=== PATIENT | female | born 1965 | race Caucasian/White ===

== ENCOUNTER 2016-10-24 19:43 | Emergency (ER) | payer OTHER ==
[~2016-10-24 19:43] MED LIST: ATEN25TA PO; FISH100035 PO; GABAPOW41 PO; HYDROCHLOROTHIAZIDE PO; IRON325T3 PO; KLORCON PO; LEVA31IN INH; LOSARTAN PO; MOME50SP; PULM1SUS IN; VITA30004 PO; ZOLO100T PO
[2016-10-24] MEDS ORDERED: METOPROLOL TART 25 MG TABLET As Ordered ONE (20:20)
[2016-10-24] MEDS ORDERED: ASPIRIN 81 MG CHEW TABLET As Ordered ONE (20:20)
[2016-10-24] MEDS ORDERED: CHLORTHALIDONE 25 MG TAB As Ordered ONE (20:21)
[2016-10-24 20:48] LABS: BASO % 0.7 % (0.0-1.0); EOS # 0.2 K/mm3 (0.0-0.50); EOS % 2.2 % (0.0-3.0); LARGE UNSTAINED CELL # 0.1 K/mm3 (0.0-0.4); LARGE UNSTAINED CELL % 1.5 % (0.0-4.0); LYMPH # 1.7 K/mm3 (1.5-4.5); LYMPH % 20.4 % (24.0-44.0); MEAN CORPUSCULAR HEMOGLOBIN 27.8 pg (27.0-33.0); MEAN CORPUSCULAR HGB CONC 32.2 g/dl (32.0-36.5); MEAN CORPUSCULAR VOLUME 86.3 fl (80.0-96.0); MONO # 0.3 K/mm3 (0.0-0.8); MONO % 3.9 % (0.0-5.0); NEUTROPHILS # 5.8 K/mm3 (1.8-7.7); NEUTROPHILS % 71.4 % (36.0-66.0); PLATELET COUNT, AUTOMATED 426 k/mm3 (150-450); RED CELL DISTRIBUTION WIDTH 14.2 % (11.5-14.5); WHITE BLOOD COUNT 8.1 K/mm3 (4.0-10.0)
[2016-10-24 20:55] LABS: INR 0.99
[2016-10-24 21:20] LABS: ANION GAP 6 MEQ/L (8-16); BLOOD UREA NITROGEN 17 MG/DL (7-18); CALCIUM LEVEL 8.9 MG/DL (8.5-10.1); CARBON DIOXIDE LEVEL 33 MEQ/L (21-32); CHLORIDE LEVEL 102 MEQ/L (98-107); GLUCOSE, FASTING 146 MG/DL (70-105); POTASSIUM SERUM 3.6 MEQ/L (3.5-5.1); SODIUM LEVEL 141 MEQ/L (136-145)
--- NOTE | 2016-10-24 21:43 | EDDOCDS ---
Physician Documentation [facility] Name: Heidi Henry Age: 50 yrs Sex: Female : 1965 Arrival Date: 10/24/2016 Time: 19:43 Bed 6 Private MD: Nadine Arevalo E Disposition: 10/24/16 21:32 Discharged to Home/Self Care. Impression: Chest pain, unspecified. - Condition is Stable. - Discharge Instructions: Nonspecific Chest Pain. - Medication Reconciliation, Local Pharmacy Hours form. - Follow up: Nadine Arevalo; When: 4 - 5 days; Reason: Recheck today's complaints, Continuance of care. Follow up: Min Loera; When: Call to arrange an appointment; Reason: Recheck today's complaints, Continuance of care. - Problem is an ongoing problem. - Symptoms are unchanged. Historical: - Allergies: Latex; Lisinopril; - Home Meds: 1. Nexium 40 mg Oral cpDR 1 cap once daily 2. valsartan 160 mg oral tab 1 tab once daily 3. Sertraline 100 mg daily 4. torsemide 10 mg oral tab 1 tab PRN For increased leg swelling 5. chlorthalidone 25 mg Oral tab 1 tab once daily Pt is to stop taking if she takes Torsemide 6. aspirin 81 mg Oral TbEC 1 tab once daily 7. Pulmicort Turbuhaler 200 mcg/actuation Inhl aepb twice a day 8. Xopenex HFA 45 mcg/actuation inhalation HFAA 2 puffs every 4 hours PRN 9. Vitamin D Oral 5000 unit daily 10. biotin 2,500 mcg oral tab 2 tabs daily 11. ubiquinol (bulk) miscellaneous daily 12. Fish Oil Oral daily - PMHx: GERD; Depression; Hypertension; Anxiety; - PSHx: ; - Social history: No barriers to communication noted, The patient speaks fluent Welsh, Speaks appropriately for age, Smoking status: Patient states was never smoker of tobacco. - Family history: No immediate family members are acutely ill. - : The pt / caregiver states he / she is not on anticoagulants. Home medication list is obtained from the patient. - Exposure Risk Screening:: None identified. MANAGER INCOME TAX: 10/24 20:10 LMP 08/2016, irregular jo3 Vital Signs: 19:45 BP 188 / 99; Pulse 100; Resp 16; Pulse Ox 100% on R/A; Weight 121.56 kg / 267.99 lbs; sew Height 5 ft. 4 in. (162.56 cm); Pain 3/10; 19:47 Temp 97.0(T); sew 20:11 BP 162 / 58 (auto/); mv5 20:11 Pulse 92 MON; Pulse Ox 98% ; mv5 20:41 BP 151 / 67 (auto/); mv5 20:41 Pulse 84 MON; Pulse Ox 96% ; mv5 20:56 BP 150 / 68 (auto/); mv5 20:56 Pulse 76 MON; Pulse Ox 97% ; mv5 21:11 BP 141 / 55 (auto/); mv5 21:11 Pulse 72 MON; Pulse Ox 94% ; mv5 21:26 BP 129 / 60 (auto/); mv5 21:26 Pulse 78 MON; Pulse Ox 96% ; mv5 21:35 BP 147 / 65 (auto/); mv5 21:35 Pulse 66 MON; Resp 18; Temp 98.3; Pulse Ox 96% ; mv5 19:45 Body Mass Index 46.00 (121.56 kg, 162.56 cm) sew MDM: 19:49 ECG WITH READING ER PHYS+CARDIAG ordered. EDMS 20:15 Aspirin Chewable Tablet 324 mg PO once ordered. ke 20:15 Metoprolol (Tartrate) 50 mg PO once ordered. ke 20:15 Interventional Radiology Technologist/Pulse Ox/q 30 min VS ordered. ke 20:15 IV Saline Lock ordered. ke 20:15 Rhythm Strip to chart ordered. ke 20:15 Undress patient appropriately for examination ordered. ke 20:15 Chlorthalidone 25 mg PO once ordered. ke 20:16 B-Type Natiuretic Peptide Ordered. EDMS 20:16 Basic Metabolic Profile Ordered. EDMS 20:16 CBC with Diff Ordered. EDMS 20:16 Cardiac Injury Profile Ordered. EDMS 20:16 Prothrombin Time Profile\E\INR Ordered. EDMS 20:16 Troponin Ordered. EDMS 20:16 Chest, 2 View (pa\E\lat) Ordered. EDMS 20:43 Financial registration complete. gjb 20:54 CBC with Diff Reviewed. ke 20:54 [facility] [place] Agreement was scanned into [employer]) and attached to record. gjb 21:24 Basic Metabolic Profile Reviewed. ke 21:24 B-Type Natiuretic Peptide Reviewed. ke 21:24 Cardiac Injury Profile Reviewed. ke 21:24 Prothrombin Time Profile\E\INR Reviewed. ke 21:24 Troponin Reviewed. ke Administered Medications: 20:25 Drug: Aspirin 324 mg [aspirin 81 mg chewable tablet (4 tabs)] Route: PO; mv5 21:42 Follow up: Response: No Adverse Reaction mv5 20:25 Drug: Metoprolol 50 mg [metoprolol tartrate 25 mg tablet (2 tabs)] Route: PO; mv5 21:42 Follow up: Response: No Adverse Reaction mv5 20:37 Not Given (Patient Refused): Chlorthalidone 25 mg PO once mv5 Signatures: Dispatcher [employer]Host EDAlen Titus, BOAT RENTAL CLERK BOAT RENTAL CLERK Macey Contreras,RN RN Tiara Arroyo MeganRN RN mv5 The chart was reviewed and I authenticate all verbal orders and agree with the evaluation and treatment provided.Attachments: 20:54 [facility] Payment Agreement lani MTDD
--- NOTE | 2016-10-24 21:43 | EDDOCDS ---
Nurse's Notes [facility] Name: Heidi Henry Age: 50 yrs Sex: Female : 1965 Arrival Date: 10/24/2016 Time: 19:43 Bed 6 Private MD: Nadine Arevalo E Diagnosis: Chest pain, unspecified Presentation: 10/24 20:00 Presenting complaint: Patient states: Intermittent mid anterior chest pain x several jo3 days that is sometimes reproducible and sometimes unchanged with movement, palpation or breathing. Pain radiates outward intermittently to ENA chest. Aspirin was not taken prior to arrival. 81mg home dose ASA. Adult Sepsis Screening: The patient does not have new or worsening altered mentation. Patient's respiratory rate is less than 22. Systolic blood pressure is greater than 100. Patient has a qSOFA score of 0- Negative Sepsis Screen. Suicide/Homicide risk assessment- the patient denies having any suicidal and/or homicidal ideations and does not present with any other emotional, behavioral or mental health complaints. Status: Patient is not a service desk associate or dependent. Transition of care: patient was not received from another setting of care. 20:00 Acuity: YAMILET Level 2 jo3 20:00 Method Of Arrival: Walkin/Carried/Asstd jo3 Triage Assessment: 20:10 General: Appears in no apparent distress, Behavior is appropriate for age, cooperative. jo3 Neurological: Level of Consciousness is awake, alert, Oriented to person, place, time. Respiratory: Airway is patent Respiratory effort is even, unlabored. Derm: Skin is pink, warm & dry. 21:40 Cardiovascular: Chest pain episodes are intermittent. mv5 21:40 Pt Declines HIV testing. Cardiovascular: Chest pain is described as mild, radiates Does mv5 not radiate. began 3 days ago. ACCOUNT SUPPORT ANALYST: 20:10 LMP 08/2016, irregular jo3 Historical: - Allergies: Latex; Lisinopril; - Home Meds: 1. Nexium 40 mg Oral cpDR 1 cap once daily 2. valsartan 160 mg oral tab 1 tab once daily 3. Sertraline 100 mg daily 4. torsemide 10 mg oral tab 1 tab PRN For increased leg swelling 5. chlorthalidone 25 mg Oral tab 1 tab once daily Pt is to stop taking if she takes Torsemide 6. aspirin 81 mg Oral TbEC 1 tab once daily 7. Pulmicort Turbuhaler 200 mcg/actuation Inhl aepb twice a day 8. Xopenex HFA 45 mcg/actuation inhalation HFAA 2 puffs every 4 hours PRN 9. Vitamin D Oral 5000 unit daily 10. biotin 2,500 mcg oral tab 2 tabs daily 11. ubiquinol (bulk) miscellaneous daily 12. Fish Oil Oral daily - PMHx: GERD; Depression; Hypertension; Anxiety; - PSHx: ; - Social history: No barriers to communication noted, The patient speaks fluent Comoran, Speaks appropriately for age, Smoking status: Patient states was never smoker of tobacco. - Family history: No immediate family members are acutely ill. - : The pt / caregiver states he / she is not on anticoagulants. Home medication list is obtained from the patient. - Exposure Risk Screening:: None identified. Screenin:11 Screening information is obtained from the patient. Fall risk: No risks identified. mv5 Assistance ADL's: requires no assistance with activities of daily living. Abuse/DV Screen: The patient / caregiver reports he/she is: not in a situation that causes fear, pain or injury. Nutritional screening: No deficits noted. Advance Directives: There is no active DNR order. home support is adequate. Assessment: 20:38 General: Appears in no apparent distress, well nourished, well groomed, Behavior is mv5 cooperative, Family at bedside.. Pain: Location: mid-sternal area Pain currently is 3 out of 10 on a pain scale. Pain does not radiate. Quality of pain is described as squeezing, Is intermittent x 3 days. Neurological: Level of Consciousness is awake, alert, Oriented to person, place, time. Cardiovascular: Capillary refill < 3 seconds Heart tones S1 S2 present Pulses are all present. Rhythm is sinus rhythm No ectopy. Respiratory: Airway is patent Respiratory effort is even, unlabored, Respiratory pattern is regular, symmetrical, Breath sounds are clear bilaterally. GI: No deficits noted. : No deficits noted. Derm: Skin is pink, warm & dry. 20:50 General: Appears in no apparent distress, Pt to xray and returned without incident.. mv5 Cardiovascular:. Cardiovascular: Rhythm is sinus rhythm No ectopy. 21:30 General: Appears in no apparent distress, INTERLOCKER in to reassess pt.. Neurological: Level of mv5 Consciousness is awake, alert, Oriented to person, place, time. Cardiovascular: Rhythm is sinus rhythm No ectopy. Respiratory: Airway is patent Respiratory effort is even, unlabored, Respiratory pattern is regular, symmetrical. Derm: Skin is pink, warm & dry. 21:39 General: Appears in no apparent distress, Discharge information reviewed with pt.. mv5 Vital Signs: 19:45 BP 188 / 99; Pulse 100; Resp 16; Pulse Ox 100% on R/A; Weight 121.56 kg; Height 5 ft. 4 sew in. (162.56 cm); Pain 3/10; 19:47 Temp 97.0(T); sew 20:11 BP 162 / 58 (auto/); mv5 20:11 Pulse 92 MON; Pulse Ox 98% ; mv5 20:41 BP 151 / 67 (auto/); mv5 20:41 Pulse 84 MON; Pulse Ox 96% ; mv5 20:56 BP 150 / 68 (auto/); mv5 20:56 Pulse 76 MON; Pulse Ox 97% ; mv5 21:11 BP 141 / 55 (auto/); mv5 21:11 Pulse 72 MON; Pulse Ox 94% ; mv5 21:26 BP 129 / 60 (auto/); mv5 21:26 Pulse 78 MON; Pulse Ox 96% ; mv5 21:35 BP 147 / 65 (auto/); mv5 21:35 Pulse 66 MON; Resp 18; Temp 98.3; Pulse Ox 96% ; mv5 19:45 Body Mass Index 46.00 (121.56 kg, 162.56 cm) sew Vitals: 19:45 Log In Time: October 24, 2016 at 19:41. RN notified that patient meets Red Flag sew criteria. ED Course: 19:45 Patient visited by Yolis Hopper. sew 19:45 Nadine Arevalo is Private Physician. sew 19:45 Patient moved to Waiting sew 19:47 Patient visited by Yolis Hopper. sew 19:47 Concepicon Goodson,HEIDY is Primary Nurse. sew 19:47 Patient moved to 6 sew 20:02 Triage Initiated jo3 20:05 [facility]. ke 20:05 Patient visited by Alen Gonzalez FNP. ke 20:05 Patient visited by Alen Gonzalez FNP. ke 20:11 Patient visited by Macey Downey RN. jo3 20:11 The patient / caregiver is instructed regarding the plan of care and ED course. Cardiac mv5 monitor on. Pulse ox on. NIBP on. 20:11 Inserted saline lock: 20 gauge in left antecubital area and blood collected. The mv5 patient tolerated the procedure well. 20:28 Patient visited by Seng Clemens PCA. jmv 20:28 EKG done. (by ED staff). Reviewed by Alen NORRIS. jmv 20:37 B-Type Natiuretic Peptide Sent. mv5 20:37 Basic Metabolic Profile Sent. mv5 20:37 CBC with Diff Sent. mv5 20:37 Cardiac Injury Profile Sent. mv5 20:37 Prothrombin Time Profile\E\INR Sent. mv5 20:37 Troponin Sent. mv5 20:52 Patient visited by Alen Gonzalez FNP. ke 20:54 [facility] Payment Agreement was scanned into [employer] and attached to record. gjb 21:08 Patient name changed from Heidi\S\\S\Elaine\S\ to Heidi\S\ \S\Elaine. EDMS 21:22 Patient visited by Alen Gonzalez FNP. ke 21:32 Nadine Arevalo is Referral Physician. ke 21:32 Min Loera is Referral Physician. ke 21:35 Discontinued intact, bleeding controlled, pressure dressing applied, No mv5 redness/swelling at site. No procedures done that require assistance. Administered Medications: 20:25 Drug: Aspirin 324 mg [aspirin 81 mg chewable tablet (4 tabs)] Route: PO; mv5 21:42 Follow up: Response: No Adverse Reaction mv5 20:25 Drug: Metoprolol 50 mg [metoprolol tartrate 25 mg tablet (2 tabs)] Route: PO; mv5 21:42 Follow up: Response: No Adverse Reaction mv5 20:37 Not Given (Patient Refused): Chlorthalidone 25 mg PO once mv5 Order Results: Lab Order: B-Type Natiuretic Peptide; SPEC'M 10/24/16 20:24 Test: BRAIN NATRIURETIC PEPTIDE; Value: < 5.0; Range: <100; Units: PG/ML; Status: F Lab Order: Basic Metabolic Profile; SPEC'M 10/24/16 20:24 Test: GLUCOSE, FASTING; Value: 146; Range: 70-105; Abnormal: Above high normal; Units: MG/DL; Status: F Test: BLOOD UREA NITROGEN; Value: 17; Range: 7-18; Units: MG/DL; Status: F Test: CREATININE FOR GFR; Value: 1.10; Range: 0.55-1.02; Abnormal: Above high normal; Units: MG/DL; Status: F Test: GLOMERULAR FILTRATION RATE; Value: 56.0; Range: >51; Status: F Test: SODIUM LEVEL; Value: 141; Range: 136-145; Units: MEQ/L; Status: F Test: POTASSIUM SERUM; Value: 3.6; Range: 3.5-5.1; Units: MEQ/L; Status: F Test: CHLORIDE LEVEL; Value: 102; Range: 98-107; Units: MEQ/L; Status: F Test: CARBON DIOXIDE LEVEL; Value: 33; Range: 21-32; Abnormal: Above high normal; Units: MEQ/L; Status: F Test: ANION GAP; Value: 6; Range: 8-16; Abnormal: Below low normal; Units: MEQ/L; Status: F Test: CALCIUM LEVEL; Value: 8.9; Range: 8.5-10.1; Units: MG/DL; Status: F Test Note: ; Units are mL/min/1.73 m2 Chronic Kidney Disease Staging per NKF: Stage I & II GFR >=60 Normal to Mildly Decreased Stage III GFR 30-59 Moderately Decreased Stage IV GFR 15-29 Severely Decreased Stage V GFR <15 Very Little GFR Left ESRD GFR <15 on ESTATE MANAGER Lab Order: CBC with Diff; SPEC'M 10/24/16 20:24 Test: WHITE BLOOD COUNT; Value: 8.1; Range: 4.0-10.0; Units: K/mm3; Status: F Test: RED BLOOD COUNT; Value: 4.56; Range: 4.00-5.40; Units: M/mm3; Status: F Test: HEMOGLOBIN; Value: 12.7; Range: 12.0-16.0; Units: g/dl; Status: F Test: HEMATOCRIT; Value: 39.4; Range: 36.0-47.0; Units: %; Status: F Test: MEAN CORPUSCULAR VOLUME; Value: 86.3; Range: 80.0-96.0; Units: fl; Status: F Test: MEAN CORPUSCULAR HEMOGLOBIN; Value: 27.8; Range: 27.0-33.0; Units: pg; Status: F Test: MEAN CORPUSCULAR HGB CONC; Value: 32.2; Range: 32.0-36.5; Units: g/dl; Status: F Test: RED CELL DISTRIBUTION WIDTH; Value: 14.2; Range: 11.5-14.5; Units: %; Status: F Test: PLATELET COUNT, AUTOMATED; Value: 426; Range: 150-450; Units: k/mm3; Status: F Test: NEUTROPHILS %; Value: 71.4; Range: 36.0-66.0; Abnormal: Above high normal; Units: %; Status: F Test: LYMPH %; Value: 20.4; Range: 24.0-44.0; Abnormal: Below low normal; Units: %; Status: F Test: MONO %; Value: 3.9; Range: 0.0-5.0; Units: %; Status: F Test: EOS %; Value: 2.2; Range: 0.0-3.0; Units: %; Status: F Test: BASO %; Value: 0.7; Range: 0.0-1.0; Units: %; Status: F Test: LARGE UNSTAINED CELL %; Value: 1.5; Range: 0.0-4.0; Units: %; Status: F Test: NEUTROPHILS #; Value: 5.8; Range: 1.8-7.7; Units: K/mm3; Status: F Test: LYMPH #; Value: 1.7; Range: 1.5-4.5; Units: K/mm3; Status: F Test: MONO #; Value: 0.3; Range: 0.0-0.8; Units: K/mm3; Status: F Test: EOS #; Value: 0.2; Range: 0.0-0.50; Units: K/mm3; Status: F Test: BASO #; Value: 0.0; Range: 0.0-0.2; Units: K/mm3; Status: F Test: LARGE UNSTAINED CELL #; Value: 0.1; Range: 0.0-0.4; Units: K/mm3; Status: F Lab Order: Cardiac Injury Profile; [facility] 10/24/16 20:24 Test: CPK CREATINE PHOSPHOKINASE; Value: 111; Range: 26-192; Units: U/L; Status: F Test: CK-MB VALUE MASS; Value: 1.6; Range: 0.0-3.6; Units: NG/ML; Status: F Test: MB/CK RELATIVE INDEX; Value: 1.44; Range: < OR =4; Status: F Test Note: ; DIAGNOSIS CRITERIA MMB ng/ml Relative Index (RI) NON-AMI < or = 5 N/A MCLAIN ZONE > 5 < or = 4 AMI > 5 > 4 Lab Order: Prothrombin Time Profile\E\INR; [facility] 10/24/16 20:24 Test: PROTHROMBIN TIME; Value: 13.2; Range: 12.3-14.5; Units: SECONDS; Status: F Test: INR; Value: 0.99; Status: F Test Note: ; THERAPUTIC HUMAN INR VALUES INDICATIONS NORMAL RANGES PROPHYLAXIS/TREATMENT OF: VENOUS THROMBOSIS 2.0-3.0 PULMONARY EMBOLISM 2.0-3.0 PREVENTION OF SYSTEMIC EMBOLISM FROM: TISSUE HEART VALVES 2.0-3.0 ACUTE MYOCARDIAL INFARCTION 2.0-3.0 VALVULAR HEART DISEASE 2.0-3.0 ATRIAL FIBRILLATION 2.0-3.0 MECHANICAL VALVES(HIGH RISK) 2.5-3.5 RECURRENT MYOCARDIAL INFARCTION 2.5-3.5 Lab Order: Troponin; [facility] 10/24/16 20:24 Test: TROPONIN I; Value: < 0.02; Range: < 0.10; Units: NG/ML; Status: F Test Note: ; Troponin I Reference Interval for Enlightened Lifestyle LOCI: 99th Percentile= 0.00-0.045 ng/ml Risk Stratification: <= 0.10 ng/ml Decreased Risk for Adverse Clinical Events. 0.10-1.50 ng/ml Increased Risk for Adverse Clinical Events. Evaluation of additional criterion and/or repeat testing in 2-6 hours is suggested to rule out myocardial damage. >= 1.50 ng/ml Indicative of Myocardial Injury. Outcome: 21:32 Discharge ordered by Provider. 21:35 Discharge Assessment: Patient awake, alert and oriented x 3. No cognitive and/or mv5 functional deficits noted. Patient verbalized understanding of disposition instructions. patient administered narcotics - no. The following High Risk Discharge criteria are identified: None. Discharged to home. Condition: stable. Discharge instructions given to patient, Demonstrated understanding of Pt was receptive of discharge instructions/ teaching. No special radiology studies were completed. Property sent home with patient. 21:42 Patient left the ED. mv5 Signatures: Dispatcher MedHost EDAlen Titus, SLEEPING CAR CONDUCTOR Macey Chávez,RN RN joFamilia Hopper, Tiara Linares Jose, LATHMAKER LATHMAKER Concepcion Bonilla,RN RN mv5 MTDD
--- NOTE | 2016-10-25 10:19 | REP ---
CHEST PA AND LATERAL: 10/24/2016. Clinical history: Chest pain. Comparison: 09/17/2016. Findings: Lungs are well inflated without infiltrate, effusion, or atelectasis. Hilar contours are normal and unchanged. The aorta is intact. Airway is unremarkable. Bones show no acute compression deformity. No free air under the diaphragm. Impression: 1. No acute cardiopulmonary disease, stable chest. Signed by Hakeem Davila MD 10/25/2016 07:30 P
--- NOTE | 2016-10-25 12:53 | ECGEPIP ---
Stationary ECG Study [facility] - ED Test Date: 2016-10-24 Pat Name: JANINA JORDAN Department: Room: - Gender: F Fast Food Server: sunita : 1965 Requested By: ALYSSA Mckeon Order Number: [id number] Reading MD: Tiffany Barbosa Measurements Intervals [place] Rate: 88 P: 52 MI: 146 QRS: 37 QRSD: 91 T: 9 QT: 377 QTc: 458 Interpretive Statements SINUS RHYTHM LOW QRS VOLTAGE IN PRECORDIAL LEADS DELAYED R WAVE PROGRESSION PROLONGED QTC NONSPECIFIC ST T WAVE CHANGES CW 10/06/13 - RATE DECREASED NONSPECIFIC ST T WAVE CHANGES Electronically Signed On 10-25-2016 12:53:19 EST by Tiffany Barbosa
--- NOTE | 2016-10-26 22:44 | EDDOCDS ---
Physician Documentation [facility] Name: Heidi Henry Age: 50 yrs Sex: Female : 1965 Arrival Date: 10/24/2016 Time: 19:43 Bed 6 Private MD: Nadine Arevalo E Disposition: 10/24/16 21:32 Discharged to Home/Self Care. Impression: Chest pain, unspecified. - Condition is Stable. - Discharge Instructions: Nonspecific Chest Pain. - Medication Reconciliation, Local Pharmacy Hours form. - Follow up: Nadine Arevalo; When: 4 - 5 days; Reason: Recheck today's complaints, Continuance of care. Follow up: Min Loera; When: Call to arrange an appointment; Reason: Recheck today's complaints, Continuance of care. - Problem is an ongoing problem. - Symptoms are unchanged. Historical: - Allergies: Latex; Lisinopril; - Home Meds: 1. Nexium 40 mg Oral cpDR 1 cap once daily 2. valsartan 160 mg oral tab 1 tab once daily 3. Sertraline 100 mg daily 4. torsemide 10 mg oral tab 1 tab PRN For increased leg swelling 5. chlorthalidone 25 mg Oral tab 1 tab once daily Pt is to stop taking if she takes Torsemide 6. aspirin 81 mg Oral TbEC 1 tab once daily 7. Pulmicort Turbuhaler 200 mcg/actuation Inhl aepb twice a day 8. Xopenex HFA 45 mcg/actuation inhalation HFAA 2 puffs every 4 hours PRN 9. Vitamin D Oral 5000 unit daily 10. biotin 2,500 mcg oral tab 2 tabs daily 11. ubiquinol (bulk) miscellaneous daily 12. Fish Oil Oral daily - PMHx: GERD; Depression; Hypertension; Anxiety; - PSHx: ; - Social history: No barriers to communication noted, The patient speaks fluent Czech, Speaks appropriately for age, Smoking status: Patient states was never smoker of tobacco. - Family history: No immediate family members are acutely ill. - : The pt / caregiver states he / she is not on anticoagulants. Home medication list is obtained from the patient. - Exposure Risk Screening:: None identified. ACCOUNTS CLERK: 10/24 20:10 LMP 08/2016, irregular jo3 Vital Signs: 19:45 BP 188 / 99; Pulse 100; Resp 16; Pulse Ox 100% on R/A; Weight 121.56 kg / 267.99 lbs; sew Height 5 ft. 4 in. (162.56 cm); Pain 3/10; 19:47 Temp 97.0(T); sew 20:11 BP 162 / 58 (auto/); mv5 20:11 Pulse 92 MON; Pulse Ox 98% ; mv5 20:41 BP 151 / 67 (auto/); mv5 20:41 Pulse 84 MON; Pulse Ox 96% ; mv5 20:56 BP 150 / 68 (auto/); mv5 20:56 Pulse 76 MON; Pulse Ox 97% ; mv5 21:11 BP 141 / 55 (auto/); mv5 21:11 Pulse 72 MON; Pulse Ox 94% ; mv5 21:26 BP 129 / 60 (auto/); mv5 21:26 Pulse 78 MON; Pulse Ox 96% ; mv5 21:35 BP 147 / 65 (auto/); mv5 21:35 Pulse 66 MON; Resp 18; Temp 98.3; Pulse Ox 96% ; mv5 19:45 Body Mass Index 46.00 (121.56 kg, 162.56 cm) sew MDM: 19:49 ECG WITH READING ER PHYS+CARDIAG ordered. EDMS 20:15 Aspirin Chewable Tablet 324 mg PO once ordered. ke 20:15 Metoprolol (Tartrate) 50 mg PO once ordered. ke 20:15 Associate Dean Of Women/Pulse Ox/q 30 min VS ordered. ke 20:15 IV Saline Lock ordered. ke 20:15 Rhythm Strip to chart ordered. ke 20:15 Undress patient appropriately for examination ordered. ke 20:15 Chlorthalidone 25 mg PO once ordered. ke 20:16 B-Type Natiuretic Peptide Ordered. EDMS 20:16 Basic Metabolic Profile Ordered. EDMS 20:16 CBC with Diff Ordered. EDMS 20:16 Cardiac Injury Profile Ordered. EDMS 20:16 Prothrombin Time Profile\E\INR Ordered. EDMS 20:16 Troponin Ordered. EDMS 20:16 Chest, 2 View (pa\E\lat) Ordered. EDMS 20:43 Financial registration complete. gjb 20:54 CBC with Diff Reviewed. ke 20:54 [facility] [place] Agreement was scanned into [employer] and attached to record. gjb 21:24 Basic Metabolic Profile Reviewed. ke 21:24 B-Type Natiuretic Peptide Reviewed. ke 21:24 Cardiac Injury Profile Reviewed. ke 21:24 Prothrombin Time Profile\E\INR Reviewed. ke 21:24 Troponin Reviewed. ke 10/25 10:27 T-Sheet-- Draft Copy was scanned into [employer] and attached to record. gb 16:35 ECG/EKG was scanned into [employer] and attached to record. gb Administered Medications: 10/24 20:25 Drug: Aspirin 324 mg [aspirin 81 mg chewable tablet (4 tabs)] Route: PO; mv5 21:42 Follow up: Response: No Adverse Reaction mv5 20:25 Drug: Metoprolol 50 mg [metoprolol tartrate 25 mg tablet (2 tabs)] Route: PO; mv5 21:42 Follow up: Response: No Adverse Reaction mv5 20:37 Not Given (Patient Refused): Chlorthalidone 25 mg PO once mv5 Signatures: Dispatcher [employer] EDMS Charo Chisholm, Ayo Reg Alen Liu, CORRESPONDENCE DICTATOR CORRESPONDENCE DICTATOR Macey Contreras,RN RN Tiara Arroyo Megan,RN RN mv5 The chart was reviewed and I authenticate all verbal orders and agree with the evaluation and treatment provided.Attachments: 20:54 [facility] Payment Agreement gj 10/25 10:27 T-Sheet-- Draft Copy gb 16:35 ECG/EKG gb Chart Complete MTDD
--- NOTE | 2016-10-26 22:44 | EDDOCDS ---
Nurse's Notes [facility] Name: Heidi Jordan Age: 50 yrs Sex: Female : 1965 Arrival Date: 10/24/2016 Time: 19:43 Bed 6 Private MD: Nadine Arevalo E Diagnosis: Chest pain, unspecified Presentation: 10/24 20:00 Presenting complaint: Patient states: Intermittent mid anterior chest pain x several jo3 days that is sometimes reproducible and sometimes unchanged with movement, palpation or breathing. Pain radiates outward intermittently to ENA chest. Aspirin was not taken prior to arrival. 81mg home dose ASA. Adult Sepsis Screening: The patient does not have new or worsening altered mentation. Patient's respiratory rate is less than 22. Systolic blood pressure is greater than 100. Patient has a qSOFA score of 0- Negative Sepsis Screen. Suicide/Homicide risk assessment- the patient denies having any suicidal and/or homicidal ideations and does not present with any other emotional, behavioral or mental health complaints. Status: Patient is not a student services counselor or dependent. Transition of care: patient was not received from another setting of care. 20:00 Acuity: YAMILET Level 2 jo3 20:00 Method Of Arrival: Walkin/Carried/Asstd jo3 Triage Assessment: 20:10 General: Appears in no apparent distress, Behavior is appropriate for age, cooperative. jo3 Neurological: Level of Consciousness is awake, alert, Oriented to person, place, time. Respiratory: Airway is patent Respiratory effort is even, unlabored. Derm: Skin is pink, warm & dry. 21:40 Cardiovascular: Chest pain episodes are intermittent. mv5 21:40 Pt Declines HIV testing. Cardiovascular: Chest pain is described as mild, radiates Does mv5 not radiate. began 3 days ago. 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 Nexium 40 mg Oral cpDR 1 cap once daily 2. valsartan 160 mg oral tab 1 tab once daily 3. Sertraline 100 mg daily 4. torsemide 10 mg oral tab 1 tab PRN For increased leg swelling 5. chlorthalidone 25 mg Oral tab 1 tab once daily Pt is to stop taking if she takes Torsemide 6. aspirin 81 mg Oral TbEC 1 tab once daily 7. Pulmicort Turbuhaler 200 mcg/actuation Inhl aepb twice a day 8. Xopenex HFA 45 mcg/actuation inhalation HFAA 2 puffs every 4 hours PRN 9. Vitamin D Oral 5000 unit daily 10. biotin 2,500 mcg oral tab 2 tabs daily 11. ubiquinol (bulk) miscellaneous daily 12. Fish Oil Oral daily - PMHx: GERD; Depression; Hypertension; Anxiety; - PSHx: ; - Social history: No barriers to communication noted, The patient speaks fluent [place], Speaks appropriately for age, Smoking status: Patient states was never smoker of tobacco. - Family history: No immediate family members are acutely ill. - : The pt / caregiver states he / she is not on anticoagulants. Home medication list is obtained from the patient. - Exposure Risk Screening:: None identified. Screenin:11 Screening information is obtained from the patient. Fall risk: No risks identified. mv5 Assistance ADL's: requires no assistance with activities of daily living. Abuse/DV Screen: The patient / caregiver reports he/she is: not in a situation that causes fear, pain or injury. Nutritional screening: No deficits noted. Advance Directives: There is no active DNR order. home support is adequate. Assessment: 20:38 General: Appears in no apparent distress, well nourished, well groomed, Behavior is mv5 cooperative, Family at bedside.. Pain: Location: mid-sternal area Pain currently is 3 out of 10 on a pain scale. Pain does not radiate. Quality of pain is described as squeezing, Is intermittent x 3 days. Neurological: Level of Consciousness is awake, alert, Oriented to person, place, time. Cardiovascular: Capillary refill < 3 seconds Heart tones S1 S2 present Pulses are all present. Rhythm is sinus rhythm No ectopy. Respiratory: Airway is patent Respiratory effort is even, unlabored, Respiratory pattern is regular, symmetrical, Breath sounds are clear bilaterally. GI: No deficits noted. : No deficits noted. Derm: Skin is pink, warm & dry. 20:50 General: Appears in no apparent distress, Pt to xray and returned without incident.. mv5 Cardiovascular:. Cardiovascular: Rhythm is sinus rhythm No ectopy. 21:30 General: Appears in no apparent distress, PUBLIC SPACE ATTENDANT in to reassess pt.. Neurological: Level of mv5 Consciousness is awake, alert, Oriented to person, place, time. Cardiovascular: Rhythm is sinus rhythm No ectopy. Respiratory: Airway is patent Respiratory effort is even, unlabored, Respiratory pattern is regular, symmetrical. Derm: Skin is pink, warm & dry. 21:39 General: Appears in no apparent distress, Discharge information reviewed with pt.. mv5 Vital Signs: 19:45 BP 188 / 99; Pulse 100; Resp 16; Pulse Ox 100% on R/A; Weight 121.56 kg; Height 5 ft. 4 sew in. (162.56 cm); Pain 3/10; 19:47 Temp 97.0(T); sew 20:11 BP 162 / 58 (auto/); mv5 20:11 Pulse 92 MON; Pulse Ox 98% ; mv5 20:41 BP 151 / 67 (auto/); mv5 20:41 Pulse 84 MON; Pulse Ox 96% ; mv5 20:56 BP 150 / 68 (auto/); mv5 20:56 Pulse 76 MON; Pulse Ox 97% ; mv5 21:11 BP 141 / 55 (auto/); mv5 21:11 Pulse 72 MON; Pulse Ox 94% ; mv5 21:26 BP 129 / 60 (auto/); mv5 21:26 Pulse 78 MON; Pulse Ox 96% ; mv5 21:35 BP 147 / 65 (auto/); mv5 21:35 Pulse 66 MON; Resp 18; Temp 98.3; Pulse Ox 96% ; mv5 19:45 Body Mass Index 46.00 (121.56 kg, 162.56 cm) sew Vitals: 19:45 Log In Time: October 24, 2016 at 19:41. RN notified that patient meets Red Flag sew criteria. ED Course: 19:45 Patient visited by Yolis Hopper. sew 19:45 Nadine Arevalo is Private Physician. sew 19:45 Patient moved to Waiting sew 19:47 Patient visited by Yolis Hopper. sew 19:47 Concepcion Goodson,HEIDY is Primary Nurse. sew 19:47 Patient moved to 6 sew 20:02 Triage Initiated jo3 20:05 [facility] ke 20:05 Patient visited by Alen Gonzalez FNP. ke 20:05 Patient visited by Alen Gonzalez FNP. ke 20:11 Patient visited by Macey Downey RN. jo3 20:11 The patient / caregiver is instructed regarding the plan of care and ED course. Cardiac mv5 monitor on. Pulse ox on. NIBP on. 20:11 Inserted saline lock: 20 gauge in left antecubital area and blood collected. The mv5 patient tolerated the procedure well. 20:28 Patient visited by Seng Clemens PCA. jmv 20:28 EKG done. (by ED staff). Reviewed by Alen NORRIS. jmv 20:37 B-Type Natiuretic Peptide Sent. mv5 20:37 Basic Metabolic Profile Sent. mv5 20:37 CBC with Diff Sent. mv5 20:37 Cardiac Injury Profile Sent. mv5 20:37 Prothrombin Time Profile\E\INR Sent. mv5 20:37 Troponin Sent. mv5 20:52 Patient visited by Alen Gonzalez FNP. ke 20:54 [facility] Payment Agreement was scanned into [employer] and attached to record. gjb 21:08 Patient name changed from Heidi\S\\S\Elaine\S\ to Heidi\S\ \S\Elaine. EDMS 21:22 Patient visited by Alen Gonzalez FNP. ke 21:32 Nadine Arevalo is Referral Physician. ke 21:32 Min Loera is Referral Physician. ke 21:35 Discontinued intact, bleeding controlled, pressure dressing applied, No mv5 redness/swelling at site. No procedures done that require assistance. 10/25 10:27 T-Sheet-- Draft Copy was scanned into [employer] and attached to record. gb 10:42 Chest, 2 View (pa\E\lat) Returned. EDMS 13:27 EKG-ADULT Returned. EDMS 16:35 ECG/EKG was scanned into [employer] and attached to record. gb Administered Medications: 10/24 20:25 Drug: Aspirin 324 mg [aspirin 81 mg chewable tablet (4 tabs)] Route: PO; mv5 21:42 Follow up: Response: No Adverse Reaction mv5 20:25 Drug: Metoprolol 50 mg [metoprolol tartrate 25 mg tablet (2 tabs)] Route: PO; mv5 21:42 Follow up: Response: No Adverse Reaction mv5 20:37 Not Given (Patient Refused): Chlorthalidone 25 mg PO once mv5 Order Results: Lab Order: B-Type Natiuretic Peptide; SPEC'M 10/24/16 20:24 Test: BRAIN NATRIURETIC PEPTIDE; Value: < 5.0; Range: <100; Units: PG/ML; Status: F Lab Order: Basic Metabolic Profile; SPEC'M 10/24/16 20:24 Test: GLUCOSE, FASTING; Value: 146; Range: 70-105; Abnormal: Above high normal; Units: MG/DL; Status: F Test: BLOOD UREA NITROGEN; Value: 17; Range: 7-18; Units: MG/DL; Status: F Test: CREATININE FOR GFR; Value: 1.10; Range: 0.55-1.02; Abnormal: Above high normal; Units: MG/DL; Status: F Test: GLOMERULAR FILTRATION RATE; Value: 56.0; Range: >51; Status: F Test: SODIUM LEVEL; Value: 141; Range: 136-145; Units: MEQ/L; Status: F Test: POTASSIUM SERUM; Value: 3.6; Range: 3.5-5.1; Units: MEQ/L; Status: F Test: CHLORIDE LEVEL; Value: 102; Range: 98-107; Units: MEQ/L; Status: F Test: CARBON DIOXIDE LEVEL; Value: 33; Range: 21-32; Abnormal: Above high normal; Units: MEQ/L; Status: F Test: ANION GAP; Value: 6; Range: 8-16; Abnormal: Below low normal; Units: MEQ/L; Status: F Test: CALCIUM LEVEL; Value: 8.9; Range: 8.5-10.1; Units: MG/DL; Status: F Test Note: ; Units are mL/min/1.73 m2 Chronic Kidney Disease Staging per NKF: Stage I & II GFR >=60 Normal to Mildly Decreased Stage III GFR 30-59 Moderately Decreased Stage IV GFR 15-29 Severely Decreased Stage V GFR <15 Very Little GFR Left ESRD GFR <15 on OPERATOR AUTOMATED PROCESS Lab Order: CBC with Diff; SPEC'M 10/24/16 20:24 Test: WHITE BLOOD COUNT; Value: 8.1; Range: 4.0-10.0; Units: K/mm3; Status: F Test: RED BLOOD COUNT; Value: 4.56; Range: 4.00-5.40; Units: M/mm3; Status: F Test: HEMOGLOBIN; Value: 12.7; Range: 12.0-16.0; Units: g/dl; Status: F Test: HEMATOCRIT; Value: 39.4; Range: 36.0-47.0; Units: %; Status: F Test: MEAN CORPUSCULAR VOLUME; Value: 86.3; Range: 80.0-96.0; Units: fl; Status: F Test: MEAN CORPUSCULAR HEMOGLOBIN; Value: 27.8; Range: 27.0-33.0; Units: pg; Status: F Test: MEAN CORPUSCULAR HGB CONC; Value: 32.2; Range: 32.0-36.5; Units: g/dl; Status: F Test: RED CELL DISTRIBUTION WIDTH; Value: 14.2; Range: 11.5-14.5; Units: %; Status: F Test: PLATELET COUNT, AUTOMATED; Value: 426; Range: 150-450; Units: k/mm3; Status: F Test: NEUTROPHILS %; Value: 71.4; Range: 36.0-66.0; Abnormal: Above high normal; Units: %; Status: F Test: LYMPH %; Value: 20.4; Range: 24.0-44.0; Abnormal: Below low normal; Units: %; Status: F Test: MONO %; Value: 3.9; Range: 0.0-5.0; Units: %; Status: F Test: EOS %; Value: 2.2; Range: 0.0-3.0; Units: %; Status: F Test: BASO %; Value: 0.7; Range: 0.0-1.0; Units: %; Status: F Test: LARGE UNSTAINED CELL %; Value: 1.5; Range: 0.0-4.0; Units: %; Status: F Test: NEUTROPHILS #; Value: 5.8; Range: 1.8-7.7; Units: K/mm3; Status: F Test: LYMPH #; Value: 1.7; Range: 1.5-4.5; Units: K/mm3; Status: F Test: MONO #; Value: 0.3; Range: 0.0-0.8; Units: K/mm3; Status: F Test: EOS #; Value: 0.2; Range: 0.0-0.50; Units: K/mm3; Status: F Test: BASO #; Value: 0.0; Range: 0.0-0.2; Units: K/mm3; Status: F Test: LARGE UNSTAINED CELL #; Value: 0.1; Range: 0.0-0.4; Units: K/mm3; Status: F Lab Order: Cardiac Injury Profile; [facility] 10/24/16 20:24 Test: CPK CREATINE PHOSPHOKINASE; Value: 111; Range: 26-192; Units: U/L; Status: F Test: CK-MB VALUE MASS; Value: 1.6; Range: 0.0-3.6; Units: NG/ML; Status: F Test: MB/CK RELATIVE INDEX; Value: 1.44; Range: < OR =4; Status: F Test Note: ; DIAGNOSIS CRITERIA MMB ng/ml Relative Index (RI) NON-AMI < or = 5 N/A MCLAIN ZONE > 5 < or = 4 AMI > 5 > 4 Lab Order: Prothrombin Time Profile\E\INR; [facility] 10/24/16 20:24 Test: PROTHROMBIN TIME; Value: 13.2; Range: 12.3-14.5; Units: SECONDS; Status: F Test: INR; Value: 0.99; Status: F Test Note: ; THERAPUTIC HUMAN INR VALUES INDICATIONS NORMAL RANGES PROPHYLAXIS/TREATMENT OF: VENOUS THROMBOSIS 2.0-3.0 PULMONARY EMBOLISM 2.0-3.0 PREVENTION OF SYSTEMIC EMBOLISM FROM: TISSUE HEART VALVES 2.0-3.0 ACUTE MYOCARDIAL INFARCTION 2.0-3.0 VALVULAR HEART DISEASE 2.0-3.0 ATRIAL FIBRILLATION 2.0-3.0 MECHANICAL VALVES(HIGH RISK) 2.5-3.5 RECURRENT MYOCARDIAL INFARCTION 2.5-3.5 Lab Order: Troponin; [facility] 10/24/16 20:24 Test: TROPONIN I; Value: < 0.02; Range: < 0.10; Units: NG/ML; Status: F Test Note: ; Troponin I Reference Interval for Nexsan LOCI: 99th Percentile= 0.00-0.045 ng/ml Risk Stratification: <= 0.10 ng/ml Decreased Risk for Adverse Clinical Events. 0.10-1.50 ng/ml Increased Risk for Adverse Clinical Events. Evaluation of additional criterion and/or repeat testing in 2-6 hours is suggested to rule out myocardial damage. >= 1.50 ng/ml Indicative of Myocardial Injury. Radiology Order: EKG-ADULT Test: EKG-ADULT REASON FOR EXAMINATION: Chest Pain; Stationary ECG Study; [facility] - ED; ; Test Date: 2016-10-24; Pat Name: HEIDI JORDAN Department:; Room: -; Gender: F Certified Ophthalmic Technician: sunita; : 1965 Requested By: ALYSSA Mckeon; Order Number: [id number] Reading MD: Tiffany Barbosa; Measurements; Intervals [place]; Rate: 88 P: 52; LA: 146 QRS: 37; QRSD: 91 T: 9; QT: 377; QTc: 458; Interpretive Statements; SINUS RHYTHM; LOW QRS VOLTAGE IN PRECORDIAL LEADS; DELAYED R WAVE PROGRESSION; PROLONGED QTC; NONSPECIFIC ST T WAVE CHANGES; ; 10/06/13 - RATE DECREASED; NONSPECIFIC ST T WAVE CHANGES; Electronically Signed On 10-25-2016 12:53:19 EST by Tiffany Barbosa; Radiology Order: Chest, 2 View (pa\E\lat) Test: Chest, 2 View (pa\E\lat) REASON FOR EXAMINATION: Chest Pain; CHEST PA AND LATERAL: 10/24/2016.; ; Clinical history: Chest pain.; ; Comparison: 09/17/2016.; ; Findings: Lungs are well inflated without infiltrate, effusion, or atelectasis.; Hilar contours are normal and unchanged. The aorta is intact. Airway is; unremarkable. Bones show no acute compression deformity. No free air under the; diaphragm.; ; Impression:; ; 1. No acute cardiopulmonary disease, stable chest.; ; ; Signed by; Hakeem Davila MD 10/25/2016 07:30 P; Outcome: 21:32 Discharge ordered by Provider. ke 21:35 Discharge Assessment: Patient awake, alert and oriented x 3. No cognitive and/or mv5 functional deficits noted. Patient verbalized understanding of disposition instructions. patient administered narcotics - no. The following High Risk Discharge criteria are identified: None. Discharged to home. Condition: stable. Discharge instructions given to patient, Demonstrated understanding of Pt was receptive of discharge instructions/ teaching. No special radiology studies were completed. Property sent home with patient. 21:42 Patient left the ED. mv5 Signatures: Dispatcher [employer] EDMS Charo Chisholm, Reg Reg gb Alen Gonzalez, HEAT AND FROST INSULATOR HELPER HEAT AND FROST INSULATOR HELPER Macey Contreras,RN RN lexx Hopper, Tiara Linares Jose, ENDLESS BELT FINISHER ENDLESS BELT FINISHER Concepcion Bonilla,RN RN mv5 Chart Complete MTDD
--- NOTE | 2016-10-26 22:44 | EDDOCDS ---
Physician Documentation [facility] Name: Heidi Henry Age: 50 yrs Sex: Female : 1965 Arrival Date: 10/24/2016 Time: 19:43 Bed 6 Private MD: Nadine Arevalo E Disposition: 10/24/16 21:32 Discharged to Home/Self Care. Impression: Chest pain, unspecified. - Condition is Stable. - Discharge Instructions: Nonspecific Chest Pain. - Medication Reconciliation, Local Pharmacy Hours form. - Follow up: Nadine Arevalo; When: 4 - 5 days; Reason: Recheck today's complaints, Continuance of care. Follow up: Min Loera; When: Call to arrange an appointment; Reason: Recheck today's complaints, Continuance of care. - Problem is an ongoing problem. - Symptoms are unchanged. Historical: - Allergies: Latex; Lisinopril; - Home Meds: 1. Nexium 40 mg Oral cpDR 1 cap once daily 2. valsartan 160 mg oral tab 1 tab once daily 3. Sertraline 100 mg daily 4. torsemide 10 mg oral tab 1 tab PRN For increased leg swelling 5. chlorthalidone 25 mg Oral tab 1 tab once daily Pt is to stop taking if she takes Torsemide 6. aspirin 81 mg Oral TbEC 1 tab once daily 7. Pulmicort Turbuhaler 200 mcg/actuation Inhl aepb twice a day 8. Xopenex HFA 45 mcg/actuation inhalation HFAA 2 puffs every 4 hours PRN 9. Vitamin D Oral 5000 unit daily 10. biotin 2,500 mcg oral tab 2 tabs daily 11. ubiquinol (bulk) miscellaneous daily 12. Fish Oil Oral daily - PMHx: GERD; Depression; Hypertension; Anxiety; - PSHx: ; - Social history: No barriers to communication noted, The patient speaks fluent [place], Speaks appropriately for age, Smoking status: Patient states was never smoker of tobacco. - Family history: No immediate family members are acutely ill. - : The pt / caregiver states he / she is not on anticoagulants. Home medication list is obtained from the patient. - Exposure Risk Screening:: None identified. 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 4 in. (162.56 cm); Pain 3/10; 19:47 Temp 97.0(T); sew 20:11 BP 162 / 58 (auto/); mv5 20:11 Pulse 92 MON; Pulse Ox 98% ; mv5 20:41 BP 151 / 67 (auto/); mv5 20:41 Pulse 84 MON; Pulse Ox 96% ; mv5 20:56 BP 150 / 68 (auto/); mv5 20:56 Pulse 76 MON; Pulse Ox 97% ; mv5 21:11 BP 141 / 55 (auto/); mv5 21:11 Pulse 72 MON; Pulse Ox 94% ; mv5 21:26 BP 129 / 60 (auto/); mv5 21:26 Pulse 78 MON; Pulse Ox 96% ; mv5 21:35 BP 147 / 65 (auto/); mv5 21:35 Pulse 66 MON; Resp 18; Temp 98.3; Pulse Ox 96% ; mv5 19:45 Body Mass Index 46.00 (121.56 kg, 162.56 cm) sew MDM: 19:49 ECG WITH READING ER PHYS+CARDIAG ordered. EDMS 20:15 Aspirin Chewable Tablet 324 mg PO once ordered. ke 20:15 Metoprolol (Tartrate) 50 mg PO once ordered. ke 20:15 Repacker/Pulse Ox/q 30 min VS ordered. ke 20:15 IV Saline Lock ordered. ke 20:15 Rhythm Strip to chart ordered. ke 20:15 Undress patient appropriately for examination ordered. ke 20:15 Chlorthalidone 25 mg PO once ordered. ke 20:16 B-Type Natiuretic Peptide Ordered. EDMS 20:16 Basic Metabolic Profile Ordered. EDMS 20:16 CBC with Diff Ordered. EDMS 20:16 Cardiac Injury Profile Ordered. EDMS 20:16 Prothrombin Time Profile\E\INR Ordered. EDMS 20:16 Troponin Ordered. EDMS 20:16 Chest, 2 View (pa\E\lat) Ordered. EDMS 20:43 Financial registration complete. gjb 20:54 CBC with Diff Reviewed. ke 20:54 [facility] [place] Agreement was scanned into [employer] and attached to record. gjb 21:24 Basic Metabolic Profile Reviewed. ke 21:24 B-Type Natiuretic Peptide Reviewed. ke 21:24 Cardiac Injury Profile Reviewed. ke 21:24 Prothrombin Time Profile\E\INR Reviewed. ke 21:24 Troponin Reviewed. ke 10/25 10:27 T-Sheet-- Draft Copy was scanned into [employer] and attached to record. gb 16:35 ECG/EKG was scanned into [employer] and attached to record. gb Administered Medications: 10/24 20:25 Drug: Aspirin 324 mg [aspirin 81 mg chewable tablet (4 tabs)] Route: PO; mv5 21:42 Follow up: Response: No Adverse Reaction mv5 20:25 Drug: Metoprolol 50 mg [metoprolol tartrate 25 mg tablet (2 tabs)] Route: PO; mv5 21:42 Follow up: Response: No Adverse Reaction mv5 20:37 Not Given (Patient Refused): Chlorthalidone 25 mg PO once mv5 Signatures: Dispatcher [employer] EDMS Charo Chisholm, Ayo Reg Alen Liu, DIABETES SOLUTIONS SPECIALIST DIABETES SOLUTIONS SPECIALIST Macey Contreras,RN RN Tiara Arroyo Megan,RN RN mv5 The chart was reviewed and I authenticate all verbal orders and agree with the evaluation and treatment provided.Attachments: 20:54 [facility] Payment Agreement gj 10/25 10:27 T-Sheet-- Draft Copy gb 16:35 ECG/EKG gb Chart Complete MTDD
== END 2016-10-24 21:42 | disposition home or self-care (01) ==
LOC: M ED 19:43
DX: R07.89 Other chest pain (principal); K21.9 Gastro-esophageal reflux disease without esophagitis; F32.9 Major depressive disorder, single episode, unspecified; I10 Essential (primary) hypertension; F41.9 Anxiety disorder, unspecified; Z79.82 Long term (current) use of aspirin; Z79.899 Other long term (current) drug therapy; Z88.8 Allergy status to other drugs, medicaments and biological substances; Z91.040 Latex allergy status

== ENCOUNTER → 2016-11-19 | Outpatient (REF) | payer OTHER | LOC: M LAB REF 16:36 | PROVIDERS: ATTEND Nurse Practitioner Family | DX: R05 Cough (principal); R50.9 Fever, unspecified ==

== ENCOUNTER → 2018-04-02 | Outpatient (REF) | payer OTHER ==
[2018-04-02 14:07] LABS: CORTISOL AM 14.1 UG/DL (4.3-22.4)
[2018-04-02 14:19] LABS: FERRITIN 27 NG/ML (8-252); IRON (FE) 105 UG/DL (50-170); PERCENT SATURATION 27.9 % (13.2-45.0); RHEUMATOID FACTOR QUANT < 10.0 IU/ML (<15.0); TOTAL IRON BINDING CAPACITY 377 UG/DL (250-450)
[2018-04-03 14:33] LABS: ANTI DOUBLE STRAND-DNA AB 1 IU/mL (0-9); RNP ANTIBODY < 0.2 AI (0.0-0.9); SMITHS ANTIBODY 0.2 AI (0.0-0.9); SSA SJOGRENS A 0.2 AI (0.0-0.9); SSB SJOGRENS B <0.2 AI (0.0-0.9)
[2018-04-03 14:33] LABS: ANTI-CHROMATIN ANTIBODIES <0.2 AI (0.0-0.9)
== END ==
LOC: M LAB REF 13:13
DX: R21 Rash and other nonspecific skin eruption (principal); I10 Essential (primary) hypertension; L65.9 Nonscarring hair loss, unspecified; R23.1 Pallor

== ENCOUNTER 2018-07-23 22:04 | Day surgery (SDC) | payer OTHER ==
[2018-07-23 23:35] LABS: BASO % 0.2 % (0.0-1.0); EOS # 0.2 10^3/uL (0.0-0.50); EOS % 1.4 % (0.0-3.0); HEMATOCRIT 41.6 % (36.0-47.0); IMMATURE GRANULOCYTE % 0.3 % (0-3.0); LYMPH # 1.3 10^3/uL (1.5-4.5); LYMPH % 10.1 % (24.0-44.0); MEAN CORPUSCULAR HEMOGLOBIN 29.9 pg (27.0-33.0); MEAN CORPUSCULAR HGB CONC 33.7 g/dl (32.0-36.5); MEAN CORPUSCULAR VOLUME 88.7 fl (80.0-96.0); MONO # 0.6 10^3/uL (0.0-0.8); MONO % 4.8 % (0.0-5.0); NEUTROPHILS # 10.8 10^3/uL (1.8-7.7); NEUTROPHILS % 83.2 % (36.0-66.0); PLATELET COUNT, AUTOMATED 386 10^3/uL (150-450); RED BLOOD COUNT 4.69 10^6/uL (4.00-5.40); RED CELL DISTRIBUTION WIDTH 13.7 % (11.5-14.5)
[2018-07-23 23:51] LABS: ALBUMIN 3.7 GM/DL (3.2-5.2); ALBUMIN/GLOBULIN RATIO 1.09 (1.00-1.93); ALKALINE PHOSPHATASE 70 U/L (45-117); ALT/SGPT 29 U/L (12-78); ANION GAP 9 MEQ/L (8-16); AST/SGOT 16 U/L (7-37); BILIRUBIN,TOTAL 0.5 MG/DL (0.2-1.0); BLOOD UREA NITROGEN 10 MG/DL (7-18); CALCIUM LEVEL 8.9 MG/DL (8.5-10.1); CARBON DIOXIDE LEVEL 24 MEQ/L (21-32); CHLORIDE LEVEL 109 MEQ/L (98-107); CREATININE FOR GFR 0.92 MG/DL (0.55-1.30); GLOMERULAR FILTRATION RATE > 60.0 (>51); GLUCOSE, FASTING 113 MG/DL (70-100); LIPASE 94 U/L (73-393); POTASSIUM SERUM 4.1 MEQ/L (3.5-5.1); SODIUM LEVEL 142 MEQ/L (136-145); TOTAL PROTEIN 7.1 GM/DL (6.4-8.2)
[2018-07-23] MEDS ORDERED: ISOVUE-370 76% 100ML VIAL (Q9967) As Ordered (23:52)
[2018-07-24] MEDS: NS 1,000 ML IV (00:04)
[2018-07-24] MEDS: ONDANSETRON 4MG/2ML VIAL (J2405) IV (00:04)
[2018-07-24] MEDS: KETOROLAC 30 MG/ML VIAL (J1885) IV (00:04)
[2018-07-24] MEDS: GI COCKTAIL 50ML BTL(HYOSCYAMINE/MAALOX/LIDOCAINE VISCOUS)(1:3:1) PO (00:04)
[2018-07-24 00:09] LABS: CK-MB VALUE MASS < 1.0 NG/ML (<3.6); CPK CREATINE PHOSPHOKINASE 98 U/L (26-192); MB/CK RELATIVE INDEX 1.02 (< OR =4); TROPONIN I < 0.02 NG/ML (< 0.10)
[2018-07-24 01:02] LABS: KETONE, URINE AUTO RFX NEGATIVE (NEGATIVE); LEUKOCYTE ESTERASE UR AUTO RFX NEGATIVE (NEGATIVE); NITRITE, URINE AUTO RFX NEGATIVE (NEGATIVE); RBC, URINE AUTO RFX 1 /HPF (0-3); SPECIFIC GRAVITY UR AUTO RFX 1.039 (1.002-1.035); SQUAM EPITHELIAL CELL UR AURFX 3 /HPF (0-6); WBC, URINE AUTO RFX 4 /HPF (0-3)
[2018-07-24] MEDS: LR 1,000 ML IV ×3 (02:22→10:30)
[2018-07-24] MEDS ORDERED: MORPHINE 4 MG/ML 1ML VIAL/SYRINGE (J2270) IV (02:30)
[2018-07-24] MEDS: PIPERACILLIN/TAZOBACTAM SOD 3.375 GM in D5W MINI-BAG PLUS 50 ML IV ×3 (03:04→20:11)
[2018-07-24] MEDS ORDERED: KETOROLAC 30 MG/ML VIAL (J1885) IV (07:30)
[2018-07-24] MEDS ORDERED: ACETAMINOPHEN TAB 650MG DOSE (2X325MG) PO (07:30)
[2018-07-24] MEDS ORDERED: ONDANSETRON 4MG/2ML VIAL (J2405) IV ×2 (07:30→09:15)
[2018-07-24] MEDS ORDERED: FLUTICASONE PROP 0.05% NASAL SPRAY 16 GM (FLONASE) NARES (07:30)
[2018-07-24] MEDS ORDERED: dexameTHASONE 4 MG/ML 1ML VIAL (J1100) As Ordered (08:29)
[2018-07-24] MEDS ORDERED: fentaNYL 250 MCG/5 ML INJECTION (J3010) As Ordered (08:29)
[2018-07-24] MEDS ORDERED: MIDAZOLAM INJ 2 MG/2 ML VIAL (J2250) As Ordered (08:29)
[2018-07-24] MEDS ORDERED: ROCURONIUM BROMIDE 50 MG/5 ML VIAL As Ordered (08:29)
[2018-07-24] MEDS ORDERED: LIDOCAINE 2% INJ 100 MG/5 ML SDV (FOR ANES.) As Ordered (08:29)
[2018-07-24] MEDS ORDERED: ONDANSETRON 4MG/2ML VIAL (J2405) As Ordered (08:29)
[2018-07-24] MEDS ORDERED: SUGAMMADEX SODIUM 500 MG/5 ML VIAL (BRIDION) As Ordered (08:30)
[2018-07-24] MEDS ORDERED: PROPOFOL 200 MG/20 ML VIAL As Ordered (08:30)
[2018-07-24] MEDS: ZOSYN 3.375 GM VIAL (J2543) As Ordered (08:34)
[2018-07-24] MEDS: BUPIVACAINE/EPIN 0.25% 30 ML VIAL As Ordered (08:45)
[2018-07-24] MEDS ORDERED: fentaNYL 100 MCG/2 ML INJECTION (J3010) IV (09:15)
[2018-07-24] MEDS ORDERED: PERCOCET 5MG/325MG TAB PO (09:15)
[2018-07-24] MEDS ORDERED: MORPHINE 10 MG/ML 1ML VIAL (J2270) IV (09:15)
[2018-07-24] MEDS ORDERED: METOCLOPRAMIDE INJ 10MG/2ML VIAL (J2765) IV (09:15)
[2018-07-24] MEDS: SENOKOT S TAB PO ×2 (13:27→20:12)
[2018-07-24] MEDS: TORSEMIDE 10 MG TABLET PO (13:27)
[2018-07-24] MEDS: PANTOPRAZOLE 40MG TAB (PROTONIX) PO (13:27)
[2018-07-24] MEDS: HEPARIN SOD (PORCINE) 5000 UNITS/ML VIAL SC ×2 (14:00→21:44)
[2018-07-24] MEDS: CETIRIZINE (ZyrTEC) 10 MG TAB PO (20:12)
[2018-07-24] MEDS: LOSARTAN 50 MG TAB PO (20:12)
[2018-07-25] MEDS: PIPERACILLIN/TAZOBACTAM SOD 3.375 GM in D5W MINI-BAG PLUS 50 ML IV ×2 (02:10→09:08)
[2018-07-25] MEDS: NORCO, ANEXSIA 5/325MG TABLET (HYDROcodone/ACETAMINOPHEN) PO (02:23)
[2018-07-25] MEDS: HEPARIN SOD (PORCINE) 5000 UNITS/ML VIAL SC (05:17)
[2018-07-25 06:50] LABS: MEAN CORPUSCULAR HEMOGLOBIN 29.4 pg (27.0-33.0); MEAN CORPUSCULAR VOLUME 91.9 fl (80.0-96.0); PLATELET COUNT, AUTOMATED 279 10^3/uL (150-450); RED BLOOD COUNT 3.81 10^6/uL (4.00-5.40); RED CELL DISTRIBUTION WIDTH 14.2 % (11.5-14.5); WHITE BLOOD COUNT 10.3 10^3/uL (4.0-10.0)
[2018-07-25 06:58] LABS: HEMOGLOBIN 11.2 g/dl (12.0-15.5)
[2018-07-25 07:10] LABS: ANION GAP 6 MEQ/L (8-16); BLOOD UREA NITROGEN 12 MG/DL (7-18); CALCIUM LEVEL 8.3 MG/DL (8.5-10.1); CARBON DIOXIDE LEVEL 29 MEQ/L (21-32); CHLORIDE LEVEL 108 MEQ/L (98-107); GLOMERULAR FILTRATION RATE 50.2 (>51); GLUCOSE, FASTING 109 MG/DL (70-100); POTASSIUM SERUM 3.8 MEQ/L (3.5-5.1); SODIUM LEVEL 143 MEQ/L (136-145)
[2018-07-25] MEDS: TORSEMIDE 10 MG TABLET PO (09:08)
[2018-07-25] MEDS: PANTOPRAZOLE 40MG TAB (PROTONIX) PO (09:08)
[2018-07-25] MEDS: SENOKOT S TAB PO (09:08)
== END 2018-07-25 11:15 | disposition home or self-care (01) ==
LOC: M SDC 07-24 01:20 → M ED 22:04 → M MS5PR 07-24 02:25
DX: K35.80 Unspecified acute appendicitis (principal); K43.6 Other and unspecified ventral hernia with obstruction, without gangrene; I10 Essential (primary) hypertension; E78.5 Hyperlipidemia, unspecified; J45.909 Unspecified asthma, uncomplicated; G47.33 Obstructive sleep apnea (adult) (pediatric); K44.9 Diaphragmatic hernia without obstruction or gangrene; K21.9 Gastro-esophageal reflux disease without esophagitis; F41.9 Anxiety disorder, unspecified; F32.9 Major depressive disorder, single episode, unspecified; R73.03 Prediabetes; M19.90 Unspecified osteoarthritis, unspecified site; E66.9 Obesity, unspecified; Z88.8 Allergy status to other drugs, medicaments and biological substances; Z91.040 Latex allergy status; Z79.899 Other long term (current) drug therapy
CPT/HCPCS: 44970

== ENCOUNTER → 2018-10-11 | Outpatient (CLI) | payer OTHER ==
[~2018-10-11] MED LIST changes: +ASPI81TA85 PO; +BUDE180INH INH; +CETI10TA PO; +LEVA0.3126 INH; +LIDOCAINE 1% MDV 20ML VIAL As Ordered ONE; +LOSA100T50 PO; +MELO15TA28 PO; +MOME50SP NARES; +NORCOTAB PO; +PANT40TA3 PO; +RANI15TA PO; +TORS10TA3 PO; +ZYRTTAB8 PO
--- NOTE | 2018-10-11 11:01 | REP ---
SPECIMEN RADIOGRAPH: Specimen radiographs are performed following stereotactic biopsy of clustered microcalcifications in the upper outer quadrant of the left breast. Multiple calcifications are seen in the specimens, particularly specimens #5 and 6. Electronically Signed by Weston Kenyon MD 10/11/2018 04:46 P
--- NOTE | 2018-10-11 11:16 | REP ---
POST-BIOPSY MAMMOGRAM, LEFT BREAST: MLO and CC views of the left breast are performed following stereotactic biopsy of the clustered microcalcifications in the upper outer quadrant. A metallic clip is seen in the upper outer quadrant. There appears to be deployed about 2.7 cm inferior to the targeted calcifications. Multiple calcifications at the targeted cluster are no longer visualized, indicating successful biopsy. Electronically Signed by Weston Kenyon MD 10/11/2018 04:46 P
--- NOTE | 2018-10-11 16:37 | REP ---
STEREOTACTIC LEFT BREAST BIOPSY The procedure was performed under the direct supervision of Dr. Kenyon The patient has a history of clustered microcalcifications in the upper outer quadrant of the left breast seen on a previous mammogram dated 09/24/2018 at [facility]. The risks and benefits of the procedure were explained to the patient and informed consent was obtained. A craniocaudal approach was utilized. The calcifications were localized using stereotactic mammographic guidance. 1% Xylocaine was used as a local anesthetic. An 8 gauge, suction assisted Mammotome needle was inserted and 6 core biopsy samples were obtained. Specimen radiograph demonstrates the presence of calcifications to be within the specimen. A marker clip was placed at the biopsy site. The patient tolerated the procedure well and there were no immediate complications. After the appropriate amount of monitored convalescence, the patient was discharged from the department. Reviewed by ABEL Wooten 10/11/2018 04:07 P Electronically Signed by Jax Alford MD 10/11/2018 04:28 P
== END ==
LOC: M RADPRO 09:05
PROVIDERS: ATTEND Internal Medicine
DX: D24.1 Benign neoplasm of right breast (principal); R92.0 Mammographic microcalcification found on diagnostic imaging of breast

== ENCOUNTER → 2018-12-16 | Outpatient (CLI) | payer OTHER ==
[~2018-12-16] MED LIST changes: +HYDR-3715 PO; +LEVA0.3131 INH; -LEVA31IN INH; -LIDOCAINE 1% MDV 20ML VIAL As Ordered ONE; -NORCOTAB PO
--- NOTE | 2018-12-16 11:23 | REP ---
HIDA SCAN WITH GALLBLADDER EJECTION FRACTION: Following the intravenous administration of 6.6 millicuries technetium 99m Mebrofenin, multiple images of the right upper quadrant performed every 5 minutes for a period of 1 hour. Gallbladder is visualized at 15 minutes post injection. There is biliary to bowel transit by the 1-hour colten. At the 1-hour colten, 8 ounces of Ensure Enlive is ingested and further imaging performed for 1 hour. Gallbladder activity is calculated and plotted on a graph to calculate the gallbladder ejection fraction. At the end of 60 minutes, gallbladder ejection fraction is calculated to be 14%. This is below the normal value of 35% or greater. IMPRESSION: Low gallbladder ejection fraction of 14%. Electronically Signed by Weston Kenyon MD 12/16/2018 03:12 P
== END ==
LOC: M RAD 07:37
PROVIDERS: ATTEND Internal Medicine
DX: R10.11 Right upper quadrant pain (principal); K82.8 Other specified diseases of gallbladder
CPT/HCPCS: 78227; A9537; J2805

== ENCOUNTER → 2019-01-24 | Outpatient (REF) | payer OTHER ==
[~2019-01-24] MED LIST changes: +LINZ145C PO; +VALS1TAB67 PO
[2019-01-24 16:53] LABS: BASO % 0.6 % (0.0-1.0); EOS # 0.1 10^3/uL (0.0-0.50); HEMATOCRIT 41.6 % (36.0-47.0); HEMOGLOBIN 13.8 g/dl (12.0-15.5); LYMPH # 1.7 10^3/uL (1.5-4.5); LYMPH % 26.5 % (24.0-44.0); MEAN CORPUSCULAR HEMOGLOBIN 29.3 pg (27.0-33.0); MEAN CORPUSCULAR HGB CONC 33.2 g/dl (32.0-36.5); MEAN CORPUSCULAR VOLUME 88.3 fl (80.0-96.0); MONO # 0.4 10^3/uL (0.0-0.8); MONO % 5.7 % (0.0-5.0); NEUTROPHILS # 4.2 10^3/uL (1.8-7.7); PLATELET COUNT, AUTOMATED 366 10^3/uL (150-450); RED BLOOD COUNT 4.71 10^6/uL (4.00-5.40); WHITE BLOOD COUNT 6.5 10^3/uL (4.0-10.0)
[2019-01-24 17:10] LABS: C REACTIVE PROTEIN QUANTITATIV < 0.30 MG/DL (0.00-0.30); RHEUMATOID FACTOR QUANT < 10.0 IU/ML (<15.0); URIC ACID 6.7 MG/DL (2.6-6.0)
[2019-01-24 17:45] LABS: ERYTHROCYTE SEDIMENTATION RATE 10 mm/hr (0-30)
[2019-01-29 00:07] LABS: ANTINUCLEAR ANTIBODIES DIRECT Negative (Negative); HLA-B27 Negative (.); Lyme Disease IgG/IgM Antibodie <0.91 ISR (0.00-0.90); Lyme Disease IgM Ab Quantitati <0.80 index (0.00-0.79)
== END ==
LOC: M LABDRAW1 15:51
PROVIDERS: ATTEND Orthopaedic Surgery
DX: M17.0 Bilateral primary osteoarthritis of knee (principal)

== ENCOUNTER 2019-02-11 05:49 | Day surgery (SDC) | payer OTHER ==
[~2019-02-11] VITALS: Ht 162.6 cm; Wt 107.5 kg
[2019-02-11] MEDS ORDERED: LR 1,000 ML IV ONE (07:00)
[2019-02-11] MEDS ORDERED: BUPIVACAINE/EPIN 0.25% 30 ML VIAL As Ordered ONE (07:03)
[2019-02-11] MEDS ORDERED: dexameTHASONE 4 MG/ML 1ML VIAL (J1100) As Ordered ONE (07:11)
[2019-02-11] MEDS ORDERED: PROPOFOL 200 MG/20 ML VIAL As Ordered ONE (07:11)
[2019-02-11] MEDS ORDERED: ROCURONIUM BROMIDE 50 MG/5 ML VIAL As Ordered ONE ×2 (07:11→08:21)
[2019-02-11] MEDS ORDERED: LIDOCAINE 2% INJ 100 MG/5 ML SDV (FOR ANES.) As Ordered ONE (07:11)
[2019-02-11] MEDS ORDERED: ONDANSETRON 4MG/2ML VIAL (J2405) As Ordered ONE (07:11)
[2019-02-11] MEDS ORDERED: fentaNYL 100 MCG/2 ML INJECTION (J3010) As Ordered ONE (07:11)
[2019-02-11] MEDS ORDERED: MIDAZOLAM INJ 2 MG/2 ML VIAL (J2250) As Ordered ONE (07:12)
[2019-02-11] MEDS ORDERED: HYDROmorphone HCL 2 MG/ML 1ML VIAL (J1170) As Ordered ONE (07:50)
[2019-02-11] MEDS ORDERED: SUGAMMADEX SODIUM 500 MG/5 ML VIAL (BRIDION) As Ordered ONE (08:04)
[2019-02-11] MEDS ORDERED: ePHEDrine SULFATE 25 MG/5 ML(5MG/ML) SYRINGE As Ordered ONE (08:04)
[2019-02-11] MEDS ORDERED: KETOROLAC 60 MG/2 ML VIAL (J1885) As Ordered ONE (08:13)
[2019-02-11] MEDS ORDERED: oxyCODONE 5MG TAB As Ordered ONE (10:39)
[2019-02-11] MEDS: oxyCODONE 5MG TAB PO PRN ×2 (10:42→11:13)
[2019-02-11] MEDS ORDERED: fentaNYL 100 MCG/2 ML INJECTION (J3010) IV PRN (11:00)
[2019-02-11] MEDS ORDERED: NORCO, ANEXSIA 5/325MG TABLET (HYDROcodone/ACETAMINOPHEN) PO PRN (11:00)
[2019-02-11 14:00] VITALS: BP 129/60
--- NOTE | 2019-02-12 08:32 | RO ---
DATE OF PROCEDURE: 02/11/2019 PREOPERATIVE DIAGNOSES: Symptomatic cholelithiasis and incarcerated ventral hernia. POSTOPERATIVE DIAGNOSES: Symptomatic cholelithiasis and incarcerated ventral hernia. PROCEDURE: Robotic cholecystectomy and robotic incarcerated ventral hernia repair. SURGEON: Dr. Weston Field. TUNNEL ELASTIC OPERATOR CHAINSTITCH: Yissel Malone. ANESTHESIA: General. ESTIMATED BLOOD LOSS: 15. COMPLICATIONS: None. INDICATIONS FOR PROCEDURE: The patient is a 53-year-old female who presents with abdominal pain, found to have a large ventral hernia that was nonreducible as well as symptomatic cholelithiasis. Recommendation to proceed with laparoscopic possible open cholecystectomy along with robotic repair of the hernia at the same time. Risks and benefits of the procedure is not limited to but including bleeding, infection, hernia recurrence, hernia formation, damage to surrounding structures, need for further surgery were discussed in detail with the patient. Informed consent was obtained and procedure was planned. PROCEDURE: The patient was brought back to operating room seven. After sufficient sedation, the abdomen was sterilely prepped and draped. Next a time-out was done to confirm proper patient and proper procedure. Following that, an 8 mm incision was made in left lower quadrant. Veress needle inserted and the abdomen was insufflated with 15 mmHg. Next an 8 mm robotic OptiView port was used to gain access to the abdomen. Once the abdomen was entered, the large ventral hernia was identified containing almost the entire omentum. I was able to place three more 8 mm robotic ports, one in the left lower quadrant, one in the lower midabdomen and one in the right lower quadrant. The robot was then docked to the ports. Once I went to the console, the first thing was to take down the adhesions on the anterior abdominal wall and surrounding this large ventral hernia and was able to slowly reduce it. Once it was completely reduced and I had enough visualization to reach the gallbladder, I elevated the gallbladder up in the air, retracted it up towards the right shoulder, dissected out the cystic duct and cystic artery. Once they were both clearly identified, they were both doubly clipped and cut. Gallbladder was then dissected free from the fossa using the cautery and then the gallbladder was left in the left upper quadrant. Next the preperitoneal fat in the peritoneum surrounding the hernia defect were carefully debrided away until the fascia was identified. The fascial edges were then reapproximated using Stratafix suture. Once the fascial defect was completely closed, 9 cm round Parietex mesh was placed over top of it. I tacked it to the midline to the center of the hernia using a #2-0 V-Loc and then using #2-0 V-Loc I ran it residential around the perimeter of the mesh to hold it in place. Once that was in place, I placed a 5 mm EndoCatch bag through the left upper port site, took out part of the hernia sac as well as the gallbladder and took that out of the abdomen. The robot was then undocked. The rest of the mesh was tacked in place using a secure strap tacker. Once that was completed, the abdomen was desufflated. Skin incision closed #4-0 Vicryl subcuticular sutures. The abdomen was cleaned and dried. Steri-Strips, 4x4 and tape were applied thus ending procedure.
== END 2019-02-11 14:00 | disposition home or self-care (01) ==
LOC: M SDC 05:49
PROVIDERS: ATTEND Surgery
DX: K80.18 Calculus of gallbladder with other cholecystitis without obstruction (principal); K43.6 Other and unspecified ventral hernia with obstruction, without gangrene; G47.30 Sleep apnea, unspecified; I10 Essential (primary) hypertension; E78.5 Hyperlipidemia, unspecified; J45.909 Unspecified asthma, uncomplicated; Z88.8 Allergy status to other drugs, medicaments and biological substances; Z91.040 Latex allergy status; Z79.82 Long term (current) use of aspirin; Z79.899 Other long term (current) drug therapy
CPT/HCPCS: 47562; 49653; 88304; C1781; J0690; J1100; J1170; J1885; J2250; J2405; J3010

== ENCOUNTER 2019-02-20 21:19 | Emergency (ER) | payer OTHER ==
[~2019-02-20] VITALS: Ht 162.6 cm; Wt 107.6 kg
[2019-02-20 21:20] VITALS: BP 165/77
== END 2019-02-20 22:10 | disposition home or self-care (01) ==
LOC: M ED 21:19
DX: L76.82 Other postprocedural complications of skin and subcutaneous tissue (principal); I10 Essential (primary) hypertension; E78.5 Hyperlipidemia, unspecified; Z79.82 Long term (current) use of aspirin; Z79.899 Other long term (current) drug therapy; Z91.040 Latex allergy status; Z88.8 Allergy status to other drugs, medicaments and biological substances